=== PATIENT | female | born 1995 | race Two or more races ===

== ENCOUNTER 2018-04-16 20:13 | Emergency (ER) | payer SELFPAY ==
[~2018-04-16] VITALS: Ht 157.5 cm; Wt 57.2 kg
[2018-04-16 20:47] VITALS: BP 123/69
[2018-04-16] MEDS ORDERED: TRAM50TA PO (20:55)
[2018-04-16] MEDS ORDERED: HYDROcodone/APAP 5/325MG 1 TAB TABLET PO ONE (21:00)
--- NOTE | 2018-04-16 22:58 | PHYS DOC ---
Past Medical History Past Medical History: No Pertinent History Past Surgical History: Alcohol Use: None Drug Use: None Adult General Chief Complaint Chief Complaint: Neck Pain HPI HPI Patient is a 22 year old female presents with posterior neck pain described as tender and swollen for the past 2 weeks. Patient was seen at emergency Department same 5 days ago and was prescribed ibuprofen and a muscle relaxant. Patient has also seen a chiropractor in the past for the same. Pain is worse with palpation and neck movement. No fever, rash, sore throat or hoarseness. No other acute symptoms or complaints. Patient has not been evaluated by her primary care doctor for her symptoms.[] Review of Systems Review of Systems ROS as per HPI All other systems were reviewed and found to be within normal limits, except as documented in this note. Current Medications Current Medications Current Medications Medications (Trade) Dose Ordered Sig/Ivan Start Time Stop Time Status Last Admin Dose Admin Acetaminophen/ Hydrocodone Bitart (Lortab 5/325) 1 tab 1X ONCE 04/16/18 21:00 04/16/18 21:03 DC 04/16/18 21:10 1 TAB Allergies Allergies Allergies Coded Allergies Type Severity Reaction Last Updated Verified No Known Drug Allergies 04/16/18 No Physical Exam Physical Exam Constitutional: Well developed, well nourished, no acute distress, non-toxic appearance. [] HENT: Normocephalic, atraumatic, bilateral external ears normal, oropharynx moist, no oral exudates, nose normal. [] Eyes: PERRLA, EOMI, conjunctiva normal, no discharge. [] Neck: Normal range of motion, diffuse mid posterior soft tissue tenderness with increased muscle tension. [] Cardiovascular:Heart rate regular rhythm, no murmur [] Lungs & Thorax: Bilateral breath sounds clear to auscultation [] Neurologic: Alert and oriented X 3, normal motor function, normal sensory function, no focal deficits noted. [] Psychologic: Affect normal, judgement normal, mood normal. [] Current Patient Data Vital Signs Vital Signs Date Time Temp Pulse Resp B/P (MAP) Pulse Ox O2 Delivery O2 Flow Rate FiO2 04/16/18 21:10 16 99 Room Air 04/16/18 20:47 98.8 90 123/69 (87) 98.8 EKG EKG [] Radiology/Procedures Radiology/Procedures [] Course & Med Decision Making Course & Med Decision Making Pertinent Labs and Imaging studies reviewed. (See chart for details) [Pain addressed. Recommend continued anti-inflammatories, and PCP follow-up. Return precautions reviewed.] Dinh Disclaimer Dinh Disclaimer This electronic medical record was generated, in whole or in part, using a voice recognition dictation system. Departure Departure Impression: Primary Impression: Cervical pain (neck) Disposition: HOME, SELF-CARE Condition: GOOD Referrals: NO PCP (PCP) Patient Instructions: Cervical Sprain, [id number] Additional Instructions: Please continue ibuprofen, muscle relaxant take tramadol as directed. Follow-up with your primary care physician for reevaluation and consider of pain management referral or trigger point injections. Scripts Tramadol Hcl (TRAMADOL HCL) 50 Mg Tablet 50 MG PO Q6H PRN for PAIN for 3 Days, #15 TAB 0 Refills Prov: RUTHY MCKINNEY DO 04/16/18 RUTHY MCKINNEY DO Apr 16, 2018 22:58
== END 2018-04-16 21:16 | disposition home or self-care (01) ==
LOC: ER 20:13
DX: M54.2 Cervicalgia (principal); R22.1 Localized swelling, mass and lump, neck
CPT/HCPCS: 99283

== ENCOUNTER 2019-10-15 13:03 | Emergency (ER) | payer SELFPAY ==
[~2019-10-15] VITALS: Ht 157.5 cm; Wt 69.0 kg
[~2019-10-15 13:03] MED LIST: TRAM50TA PO
[2019-10-15] MEDS ORDERED: AZITHROMYCIN 250 MG TABLET. PO ONE (13:30)
[2019-10-15] MEDS ORDERED: HYDROcodone/APAP 5/325MG 1 TAB TABLET PO ONE (13:30)
[2019-10-15] MEDS ORDERED: cefTRIAXone IM 250 MG VIAL IM ONE (13:30)
[2019-10-15] MEDS ORDERED: ONDANSETRON ODT 4 MG TAB.RAPDIS. PO ONE (13:30)
--- NOTE | 2019-10-15 13:37 | PHYS DOC ---
Past Medical History Past Medical History: No Pertinent History Past Surgical History: Smoking Status: Current Every Day Smoker Alcohol Use: None Drug Use: None General Adult EDM: Chief Complaint: WOUND CHECK HPI: HPI: Patient is a 23 year old female who presents with this morning began having vaginal discharge that is yellow and has some pink color to it that has a foul odor. Patient states that about 3 days ago she also noticed that in the fold of her abdomen area around where her incision was about 8 months ago at she has a nickel sized area of what appears to be yeast. She states that it is a burning sensation. Patient also has pelvic pain. Low mid abdomen pelvic area. Patient rates her pain 8 out of 10. She states she took Tylenol this morning at 6 AM. She states she does want to be treated for sexually transmitted diseases today. She is educated that she will be called in 48 hours only if something comes back positive. Review of Systems: Review of Systems: GI: Mid lower abdominal pain, denies nausea, vomiting, bloody stools or diarrhea. [] : Vaginal discharge. Denies dysuria. [] Heart Score: Risk Factors: Risk Factors: DM, Current or recent (<one month) smoker, HTN, HLP, family history of CAD, obesity. Risk Scores: Score 0 - 3: 2.5% MACE over next 6 weeks - Discharge Home Score 4 - 6: 20.3% MACE over next 6 weeks - Admit for Clinical Observation Score 7 - 10: 72.7% MACE over next 6 weeks - Early Invasive Strategies Allergies: Allergies: Allergies Coded Allergies Type Severity Reaction Last Updated Verified No Known Drug Allergies 04/16/18 No Physical Exam: PE: Constitutional: Well developed, well nourished, no acute distress, non-toxic appearance. [] HENT: Normocephalic, atraumatic, bilateral external ears normal, oropharynx moist, no oral exudates, nose normal. [] Eyes: PERRLA, EOMI, conjunctiva normal, no discharge. [] Neck: Normal range of motion, no tenderness, supple, no stridor. [] Cardiovascular:Heart rate regular rhythm, no murmur [] Lungs & Thorax: Bilateral breath sounds clear to auscultation [] Abdomen: Bowel sounds normal, soft, mid lower tenderness, no masses, no pulsatile masses. [] Skin: Warm, dry, no erythema, no rash. nickel sized area of yeast to abdomen.[] Back: No tenderness, no CVA tenderness. [] Extremities: No tenderness, no cyanosis, no clubbing, ROM intact, no edema. [] Neurologic: Alert and oriented X 3, normal motor function, normal sensory function, no focal deficits noted. [] Psychologic: Affect normal, judgement normal, mood normal. [] EKG: EKG: [] Radiology/Procedures: Radiology/Procedures: [] Impression: [facility] [address] [place] [address] IMAGING REPORT Signed PATIENT: ACE HSU MACCOUNT: [id number] : 1995 LOCATION: ER AGE: 23 SEX: F EXAM STATUS: REG ER ORD. PHYSICIAN: CATHIE KAHN APRN REASON: VAGINAL DISCHARGE, PELVIC PAIN PROCEDURE: PELVIS COMPLETE EXAM: PELVIS COMPLETE 10/15/2019 1:27 PM CLINICAL INDICATION:Vaginal discharge, pelvic pain. 8 months , scar is sore. COMPARISON:None TECHNIQUE:Grayscale, color, and Doppler ultrasound of the pelvis. FINDINGS:The uterus is anteverted and measures 6.6 x 3.8 x 2.6 cm. Endometrial stripe measures 4 mm in thickness. No evidence of retained products of conception. Myometrium is unremarkable. The right ovary measures 2.8 x 2.2 x 2.6 cm. Normal blood flow to the right ovary. Left ovary is not visualized. No adnexal mass or free fluid. IMPRESSION: Nonvisualized left ovary. Otherwise, unremarkable pelvic ultrasound. Electronically signed by: Sharmin Jonas MD (10/15/2019 2:11 PM) [id number] DICTATED and SIGNED BY: SHARMIN JONAS MD DATE: 10/15/19 1411 Course & Med Decision Making: Course & Med Decision Making Pertinent Labs and Imaging studies reviewed. (See chart for details) Alert and oriented. Ambulatory with steady gait. Speaks in full clear sentences. Abdomen soft but slight tenderness to low mid pelvic area. Patient has a small nickel sized round reddened area with no opening or drainage or pus will that appears to be yeast. She denies dysuria, fever, nausea, diarrhea, dizziness, headache, chest pain, shortness of air, vomiting, vision changes, numbness or tingling. Patient is given Rocephin and azithromycin in the ED. UTI. Bacterial Vaginosis. Blood work is within normal limits. She continues to be afebrile. Patient is stable. I have referred her to a clay carman if she would like to go. She states she did not want to go back to gynecology. Pelvic Exam: Knife Edger present Abdomen: Slight mid lower External Genitalia: Normal Skin Speculum: Normal vaginal mucosa, green-yellow foul-smelling cervical discharge Bimanual: No adnexal masses or tenderness, No CMT [] Dragon Disclaimer: Dragon Disclaimer: This electronic medical record was generated, in whole or in part, using a voice recognition dictation system. Departure Departure Impression: Primary Impression: Yeast dermatitis Additional Impressions: Bacterial vaginosis UTI (urinary tract infection) Qualified Codes: N39.0 - Urinary tract infection, site not specified; R31.9 - Hematuria, unspecified Disposition: 01 HOME, SELF-CARE Condition: STABLE Referrals: NO PCP (PCP) ANA ROD Jr, MD Patient Instructions: Bacterial Vaginosis, [id number], Sexually Transmitted Disease, Urinary Tract Infection, Yeast Infection of the Skin, [id number] Additional Instructions: Follow up with a clay carman if needed. Take medication with food and as prescribed. Drink plenty of water. Scripts Nystatin/Triamcin (NYSTATIN-TRIAMCINOLONE CREAM) 15 Gm Cream..g. 1 BRENDA TP BID, #15 GM 1 Refill Prov: CATHIE KAHN APRN 10/15/19 Cephalexin (KEFLEX) 500 Mg Capsule 1 CAP PO BID for 7 Days, #14 CAP 0 Refills Prov: CATHIE KAHN APRN 10/15/19 Metronidazole (FLAGYL) 500 Mg Tablet 1 TAB PO BID, #14 TAB Prov: CATHIE KAHN APRN 10/15/19 Justicifation of Admission Dx: Justifications for Admission: Justification of Admission Dx: N/A CATHIE KAHN APRN Oct 15, 2019 13:36
[2019-10-15 13:44] LABS: BILIRUBIN,URINE SMALL (NEG); CLARITY,URINE TURBID; NITRITE,URINE NEGATIVE (NEG); PROTEIN,URINE 100 mg/dL (NEG-TRACE)
[2019-10-15 13:54] LABS: COLOR,URINE DK YELLOW
[2019-10-15 13:56] LABS: BACTERIA,URINE MANY /HPF (0-FEW); SQUAMOUS EPITHELIAL CELL,UR MANY /LPF
--- NOTE | 2019-10-15 14:14 | RAD ---
EXAM: PELVIS COMPLETE 10/15/2019 1:27 PM CLINICAL INDICATION:Vaginal discharge, pelvic pain. 8 months , scar is sore. COMPARISON:None TECHNIQUE:Grayscale, color, and Doppler ultrasound of the pelvis. FINDINGS:The uterus is anteverted and measures 6.6 x 3.8 x 2.6 cm. Endometrial stripe measures 4 mm in thickness. No evidence of retained products of conception. Myometrium is unremarkable. The right ovary measures 2.8 x 2.2 x 2.6 cm. Normal blood flow to the right ovary. Left ovary is not visualized. No adnexal mass or free fluid. IMPRESSION: Nonvisualized left ovary. Otherwise, unremarkable pelvic ultrasound. Electronically signed by: Sharmin Jonas MD (10/15/2019 2:11 PM) [id number]
[2019-10-15 14:18] LABS: BASO % 0 % (0-3); EOS # 0.1 x10^3/uL (0.0-0.7); EOS % 1 % (0-3); HEMATOCRIT 40.8 % (36.0-47.0); HEMOGLOBIN 14.2 g/dL (12.0-15.5); LYMPH % 25 % (24-48); MEAN CORPUSCULAR HEMOGLOBIN 32 pg (25-35); MEAN CORPUSCULAR HGB CONC 35 g/dL (31-37); MEAN CORPUSCULAR VOLUME 93 fL (79-100); MONO # 0.9 x10^3/uL (0.0-1.1); MONO % 8 % (0-9); NEUT # 7.7 x10^3/uL (1.8-7.7); NEUT % 66 % (31-73); PLATELET COUNT 316 x10^3/uL (140-400); RED CELL DISTRIBUTION WIDTH 13.5 % (11.5-14.5); WHITE BLOOD COUNT 11.7 x10^3/uL (4.0-11.0)
[2019-10-15] MEDS ORDERED: METR500T PO (14:25)
[2019-10-15] MEDS ORDERED: CEPH-264 PO (14:25)
[2019-10-15] MEDS ORDERED: NYST15CR2 TP (14:25)
[2019-10-15 14:29] LABS: CALCIUM 8.6 mg/dL (8.5-10.1); CREATININE 0.7 mg/dL (0.6-1.0); POTASSIUM 3.5 mmol/L (3.5-5.1)
[2019-10-15 14:30] VITALS: BP 104/63
[2019-10-15 14:35] LABS: ALBUMIN 3.8 g/dL (3.4-5.0); ALBUMIN/GLOBULIN RATIO 1.1 (1.0-1.7); TOTAL BILIRUBIN 0.5 mg/dL (0.2-1.0); TOTAL PROTEIN 7.4 g/dL (6.4-8.2)
[2019-10-16 18:09] LABS: GC PROBE Negative (Negative)
== END 2019-10-15 14:56 | disposition home or self-care (01) ==
LOC: ER 13:03
DX: N76.0 Acute vaginitis (principal); L30.8 Other specified dermatitis; N39.0 Urinary tract infection, site not specified; B96.89 Other specified bacterial agents as the cause of diseases classified elsewhere; R31.9 Hematuria, unspecified; R10.2 Pelvic and perineal pain; F17.200 Nicotine dependence, unspecified, uncomplicated; Z98.890 Other specified postprocedural states
CPT/HCPCS: 36415; 76856; 80053; 81001; 81025; 83690; 85025; 87086; 87491; 87591; 96372; 99284; J0696; Q0111

== ENCOUNTER 2020-06-05 00:56 | Emergency (ER) | payer SELFPAY ==
[~2020-06-05] VITALS: Ht 157.5 cm; Wt 73.6 kg
[~2020-06-05 00:56] MED LIST changes: +CEPH-264 PO; +METR500T PO; +NYST15CR2 TP
[2020-06-05] MEDS ORDERED: FAMOTIDINE 20 MG/2 ML VIAL IVP ONE (01:45)
[2020-06-05] MEDS ORDERED: METOCLOPRAMIDE HCL 10 MG/2 ML VIAL. IVP ONE (01:45)
[2020-06-05 01:51] LABS: BARBITURATES NEG (NEG); BENZODIAZEPINES NEG (NEG); CANNABINOIDS POS (NEG); COCAINE NEG (NEG); METHADONE NEG (NEG); OPIATES NEG (NEG); PHENCYCLIDINE NEG (NEG)
[2020-06-05 01:53] LABS: AMPHETAMINE/METHAMPHETAMINE NEG (NEG)
--- NOTE | 2020-06-05 01:54 | PHYS DOC ---
Past Medical History Past Medical History: No Pertinent History Past Surgical History: Smoking Status: Current Every Day Smoker Alcohol Use: None Drug Use: None General Adult EDM: Chief Complaint: NAUSEA/VOMITING/DIARRHA HPI: HPI: 24 yo F with no significant past medical history (denies tobacco use), presents the ED with complaints of nausea, nonbloody nonbilious vomiting with associated diffuse abdominal cramps that started 4 days ago when she started her menses. Prior to this her last menstrual period was May 03 and reports she has very irregular menses. Took a home test that was negative. Does not take any routine medications. Denies any foreign travel or sick contacts. No history of Covid. No associated diarrhea, hematochezia, hematemesis, melena, dysuria, hematuria or abnormal vaginal discharge itching or odor. Denies any marijuana or alcohol use. present at bedside and states he smokes t obacco, but outside of the house. PSH 2 C-sections (no d&c). Reports she is a 1 year old and using protection, told chargeback specialist she has no active vaginal bleeding. Review of Systems: Review of Systems: Constitutional: Denies fever or chills. [] Eyes: Denies change in visual acuity. [] HENT: Denies nasal congestion or sore throat. [] Respiratory: Denies cough or shortness of breath. [] Cardiovascular: Denies chest pain or edema. [] GI: Denies bloody stools or diarrhea. [] : Denies dysuria, hematuria or abnormal vaginal discharge or vaginal bleeding Musculoskeletal: Denies back pain or joint pain. [] Integument: Denies rash or diaphoresis Neurologic: Denies headache, focal weakness or sensory changes. [] Endocrine: Denies polyuria or polydipsia. [] Lymphatic: Denies swollen glands. [] Psychiatric: Denies depression or anxiety. [] Heart Score: Risk Factors: Risk Factors: DM, Current or recent (<one month) smoker, HTN, HLP, family history of CAD, obesity. Risk Scores: Score 0 - 3: 2.5% MACE over next 6 weeks - Discharge Home Score 4 - 6: 20.3% MACE over next 6 weeks - Admit for Clinical Observation Score 7 - 10: 72.7% MACE over next 6 weeks - Early Invasive Strategies Current Medications: Current Medications Medications (Trade) Dose Ordered Sig/Ivan Start Time Stop Time Status Last Admin Dose Admin Famotidine (Pepcid Vial) 20 mg 1X ONCE 06/05/20 01:45 06/05/20 01:46 DC Metoclopramide HCl (Reglan Vial) 10 mg 1X ONCE 06/05/20 01:45 06/05/20 01:46 DC Allergies: Allergies: Allergies Coded Allergies Type Severity Reaction Last Updated Verified No Known Drug Allergies 04/16/18 No Physical Exam: PE: Constitutional: non-toxic but uncomfortable appearing/actively vomiting HENT: Normocephalic, atraumatic, Eyes: EOMI, conjunctiva normal, no discharge. Neck: Normal range of motion, supple, Cardiovascular: S1/2 present, regular rhythm Lungs & Thorax: Speaking in full sentences, bilateral equal chest rise, no tachypnea or increased work of breathing Abdomen: soft, no tenderness, actively vomiting in ED, clear emesis with no blood Skin: Warm, dry, no erythema, no rash. [] Back: No tenderness, no CVA tenderness. [] Extremities: No tenderness, no cyanosis, no edema Neurologic: Alert and oriented X 3, normal motor function, normal sensory function, no focal deficits noted. [] Psychologic: Affect normal, judgement normal, mood normal. [] Pelvic: Chaperoned by RN, external genitalia normal, very mild watery vaginal bleeding (looks like 2-3 ccs red-tinged water in vaginal canal), normal nonmalodorous discharge, cervical os closed with no blood expressed through os with valsalva, no cervical erythema, no CMT or adnexal tenderness, tolerated exam well EKG: EKG: [] Radiology/Procedures: Radiology/Procedures: IMAGING REPORT Signed PATIENT: ACE HSU MACCOUNT: [id number] : 1995 LOCATION: ER AGE: 24 SEX: F EXAM STATUS: REG ER ORD. PHYSICIAN: HENNY FRIAS DO REASON: abd pain, vomiting in preg PROCEDURE: OB < 14 WKS US PRE HYSTEROSALPINGOGRAM: 06/05/2020 3:30 AM INDICATION: 24 years old Female. Abdominal pain, vomiting. Spotting COMPARISON: None. TECHNIQUE: Transabdominal and transvaginal sonographic evaluation of the pelvis was performed. Grayscale, color Doppler and spectral waveform analysis were utilized. FINDINGS: UTERUS: Size: 9.7 x 8.5 x 6.8 cm. Masses: None. Endometrium: There is a circumscribed gestational sac identified with single pole with crown-rump length measuring 1.8 cm compatible with a gestational age of 8 weeks 2 days. heart tones are visualized measuring 165 bpm. Yolk sac is visualized. RIGHT OVARY: 3.0 x 2.9 x 2.2 cm. Ovary is normal in appearance. LEFT OVARY: Not visualized. Arterial and venous waveform are identified within the left ovary at the time of imaging. FREE FLUID: None. URINARY BLADDER: Unremarkable. IMPRESSION: Single intrauterine gestation is identified with heart tones measure 165 bpm and crown-rump length compatible gestational age of 8 weeks 2 days. If there is persistent clinical concern, short-term follow-up beta hCG and pelvic ultrasound could be of benefit. Left ovary is not visualized. Right ovary is normal in appearance. Electronically signed by: Julianna Snowden MD (06/05/2020 4:19 AM) [facility] [place]ATED and SIGNED BY: JULIANNA SNOWDEN MD DATE: 06/05/20 [id number] Course & Med Decision Making: Course & Med Decision Making Pertinent Labs and Imaging studies reviewed. (See chart for details) Concern for hyperemesis gravidarum in the setting of marijuana use, hypokalemia of 2.7, UTI and threatened intrauterine first trimester , U/A obtained via straight cath. On reevaluation patient with no further episodes of vomiting, abdominal pain has subsided. US performed was transabdominal. Pt tolerating ice chips/potassium in ed. Will DC home with Diclegis, vitamins, zofran odt and macrobid. On reeval is calm, no active vomiting, appears sleepy and very comfortable. Will discharge home with strict ED return precautions were given for worsening/persistent vaginal bleeding, abdominal or pelvic pain, flank pain, nausea, vomiting or dehydration. Discouraged thc use in and pt states "it was only a brownie." Encouraged urgent outpatient follow-up with PMD and BOX STAMPER-to repeat hcg in 48 hours. Life-threatening processes were considered but are low suspicion at this time, given history, physical exam and ED workup. Pt was educated on all prescription medications and adverse effects. All patient's questions were answered and pt was stable at time of discharge. Life/limb-threatening differential includes but is not limited to, ectopic , septic , sepsis/infection (endometritis, sti/pid, cystitis, pyelonephritis, Jacob's gangrene or necrotizing fasciitis, abscess), ovarian torsion, ruptured hemorrhagic ovarian cyst, endometriosis, ureterolithiasis, thrombophlebitis, hemorrhage/DIC, organ prolapse, abdominal aortic aneurysm, mesenteric ischemia, neoplasm, bowel obstruction or surgical abdomen. I spoken with the patient and her caregivers. I explained the patient's condition, diagnoses and treatment plan based on the information available to me at this time. I have answered the patient and her caregiver's questions and addressed any concerns. The patient and her caregivers have a good understanding of patient's diagnosis, condition and treatment plan as can be expected at this point. Vital signs have been stable. Patient's condition is stable and appropriate for discharge from the emergency department. Patient will pursue further outpatient evaluation with primary care physician or other designated or consulting physician as outlined in the discharge instructions. The patient and/or caregivers are agreeable to this plan of care and follow-up instructions have been explained in detail. The patient and/or caregivers have received these instructions in written form and have expressed an understanding of the discharge instructions. The patient and/or caregivers are aware that any significant change of condition or worsening of symptoms should prompt immediate return to this or the closest emergency department or call to 911. Dinh Disclaimer: Dinh Disclaimer: This electronic medical record was generated, in whole or in part, using a voice recognition dictation system. Departure Departure Impression: Primary Impression: Threatened affecting intrauterine Additional Impressions: Hyperemesis gravidarum Hypokalemia Marijuana use UTI (urinary tract infection) Disposition: 01 DC HOME SELF CARE/HOMELESS Condition: STABLE Referrals: NO PCP (PCP) FOLLOW UP WITH FAMILY MEDICINE: FOR REPEAT POTASSIUM IN 3-5 DAYS Family Medicine Address: [address] [place] [id number] Patient Instructions: Hyperemesis Gravidarum, Hypokalemia, Marijuana Abuse- Brief, - Urinary Tract Infection, Threatened Miscarriage Additional Instructions: FOLLOW UP WITH BOX STAMPER: [facility] Address: [address] [place] [address] EMERGENCY DEPARTMENT GENERAL DISCHARGE INSTRUCTIONS Thank you for coming to [facility] Emergency Department (ED) today and trusting us with you care. We trust that you had a positive experience in our Emergency Department. If you wish to speak to the department management, you may call the Director at [phone]. YOUR FOLLOW UP INSTRUCTIONS ARE FOLLOWS: 1. Do you have a private Doctor? If you do not have a private doctor, please ask for a resource list of physicians or clinics that may be able to assist you with follow up care. 2. The Emergency Physicain has interpreted your x-rays. The X-Ray specialist will also review them. If there is a change in the findings, you will be notified in 48 hours when at all possible. 3. A lab test or culture has been done, your results will be reviewed and you will be notified if you need a change in treatment. ADDITIONAL INSTRUCTIONS AND INFORMATION: 1. Your care today has been supervised by a physician who is specially trained in emergency care. Many problems require more than one evaluation for a complete diagnosis and treatment. We recommend that you schedule your follow up appointment as recommended to ensure complete treatment of you illness or injury. If you are unable to obtain follow up care and continue to have a problem, or if your condition worsens, we recommend that you return to the ED. 2. We are not able to safely determine your condition over the phone nor are we able to give sound medical advice over the phone. For these safety reasons, if you call for medical advice we will ask you to come to the ED for further evaluation. 3. If you have any questions regarding these discharge instructions please call the ED at [phone]. SAFETY INFORMATION: In the interest of safety, wellness, and injury prevention; we encourage you to wear your sealbelt, if you smoke; quite smoking, and we encourage family to use a protective helmet for bicycling and other sporting events that present an increased risk for head injury. IF YOUR SYMPTOMS WORSEN OR NEW SYMPTOMS DEVELOP, OR YOU HAVE CONCERNS ABOUT YOUR CONDITION; OR IF YOUR CONDITION WORSENS WHILE YOU ARE WAITING FOR YOUR FOLLOW UP APPOINTMENT; EITHER CONTACT YOUR PRIMARY CARE DOCTOR, THE PHYSICIAN WHOSE NAME AND NUMBER YOU WERE GIVEN, OR RETURN TO THE ED IMMEDIATELY. Scripts Ondansetron (ONDANSETRON ODT) 4 Mg Tab.rapdis 1 TAB PO PRN Q6-8HRS, #20 TAB Prov: HENNY FRIAS DO 06/05/20 Nitrofurantoin Monohyd/M-Cryst (MACROBID 100 MG CAPSULE) 100 Mg Capsule 1 CAP PO BID for 10 Days, #20 CAP 0 Refills Prov: HENNY FRIAS DO 06/05/20 Pnv Cmb#95/Ferrous Fumarate/Fa ( TABLET) 1 Each Tablet 1 TAB PO DAILY for 30 Days, #30 TAB 0 Refills Prov: HENNY FRIAS DO 06/05/20 Doxylamine Succinate/Vit B6 (Doxylamine-Pyridoxine 10-10 mg) 1 Each Tablet.dr 1 EACH PO Q6HRS for nausea and vomiting, #20 TAB.SR Prov: HENNY FRIAS DO 06/05/20 HENNY FRIAS DO Jun 05, 2020 01:54
[2020-06-05] MEDS ORDERED: IV NORMAL SALINE 1000ML BAG 1,000 ML IV ONE (02:00)
[2020-06-05 02:04] LABS: BASO % 0 % (0-3); EOS % 0 % (0-3); HEMATOCRIT 40.2 % (36.0-47.0); HEMOGLOBIN 14.2 g/dL (12.0-15.5); LYMPH # 1.7 x10^3/uL (1.0-4.8); LYMPH % 15 % (24-48); MEAN CORPUSCULAR HEMOGLOBIN 32 pg (25-35); MEAN CORPUSCULAR HGB CONC 35 g/dL (31-37); MEAN CORPUSCULAR VOLUME 91 fL (79-100); MONO # 0.6 x10^3/uL (0.0-1.1); MONO % 5 % (0-9); NEUT # 9.1 x10^3/uL (1.8-7.7); NEUT % 79 % (31-73); PLATELET COUNT 316 x10^3/uL (140-400); WHITE BLOOD COUNT 11.4 x10^3/uL (4.0-11.0)
[2020-06-05 02:18] LABS: ALBUMIN 4.1 g/dL (3.4-5.0); ALBUMIN/GLOBULIN RATIO 1.1 (1.0-1.7); CALCIUM 9.7 mg/dL (8.5-10.1); CREATININE 0.8 mg/dL (0.6-1.0); GFR 86.7; TOTAL BILIRUBIN 0.5 mg/dL (0.2-1.0)
[2020-06-05 02:19] LABS: POTASSIUM 2.7 mmol/L (3.5-5.1)
[2020-06-05 02:29] LABS: PREG TEST PT QUAL POSITIVE (NEG)
[2020-06-05 02:40] LABS: BILIRUBIN,URINE MODERATE (NEG); CLARITY,URINE TURBID; NITRITE,URINE NEGATIVE (NEG); PROTEIN,URINE 100 mg/dL (NEG-TRACE)
[2020-06-05] MEDS ORDERED: IV DEXTROSE 5% - 0.9 % NACL 1,000 ML IV ONE (02:45)
[2020-06-05 02:49] LABS: COLOR,URINE AMBER
[2020-06-05 02:51] LABS: BACTERIA,URINE MODERATE /HPF (0-FEW)
[2020-06-05] MEDS ORDERED: PYRIDOXINE 100 MG/ML VIAL. IV ONE (03:00)
[2020-06-05] MEDS ORDERED: cefTRIAXone IV Push 1 GM VIAL. IVP ONE (03:30)
--- NOTE | 2020-06-05 04:21 | RAD ---
US PRE HYSTEROSALPINGOGRAM: 06/05/2020 3:30 AM INDICATION: 24 years old Female. Abdominal pain, vomiting. Spotting COMPARISON: None. TECHNIQUE: Transabdominal and transvaginal sonographic evaluation of the pelvis was performed. Ronaldo jose e, color Doppler and spectral waveform analysis were utilized. FINDINGS: UTERUS: Size: 9.7 x 8.5 x 6.8 cm. Masses: None. Endometrium: There is a circumscribed gestational sac identified with single pole with crown-ru mp length measuring 1.8 cm compatible with a gestational age of 8 weeks 2 days. heart tones are visualized measuring 165 bpm. Yolk sac is visualized. RIGHT OVARY: 3.0 x 2.9 x 2.2 cm. Ovary is normal in appearance. LEFT OVARY: Not visualized. Arterial and venous waveform are identified within the left ovary at the time of imaging. FREE FLUID: None. URINARY BLADDER: Unremarkable. IMPRESSION: Single intrauterine gestation is identified with heart tones measure 165 bpm and crown-rump chanell gth compatible gestational age of 8 weeks 2 days. If there is persistent clinical concern, short-term follow-up beta hCG and pelvic ultrasound could be of benefit. Left ovary is not visualized. Right ovary is normal in appearance. Electronically signed by: Yesenia Wilkins MD (06/05/2020 4:19 AM) [id number]
[2020-06-05] MEDS ORDERED: DOXY1TAB8 PO (04:29)
[2020-06-05] MEDS ORDERED: PNV1TABL25 PO (04:29)
[2020-06-05] MEDS ORDERED: POTASSIUM BICARB 20 MEQ EFFERVESCENT TABLET. PO ONE (04:30)
[2020-06-05] MEDS ORDERED: NITR100C62 PO (04:32)
[2020-06-05] MEDS ORDERED: ONDANSETRON PF 4 MG/2 ML VIAL. IVP ONE (04:45)
[2020-06-05 05:07] VITALS: BP 108/60
[2020-06-05] MEDS ORDERED: ONDA4TAB12 PO (05:21)
== END 2020-06-05 05:26 | disposition home or self-care (01) ==
LOC: ER 00:56
DX: O20.0 Threatened abortion (principal); O23.41 Unspecified infection of urinary tract in pregnancy, first trimester; O21.9 Vomiting of pregnancy, unspecified; E87.6 Hypokalemia; F12.90 Cannabis use, unspecified, uncomplicated; F17.200 Nicotine dependence, unspecified, uncomplicated; Z98.890 Other specified postprocedural states; Z3A.08 8 weeks gestation of pregnancy
CPT/HCPCS: 36415; 76801; 80053; 80307; 81001; 83690; 84702; 84703; 85025; 96361; 96365; 96375; 99285; J0696; J2405; J2765; J3415; J3490; J7030; J7042

== ENCOUNTER 2020-08-06 14:00 | Emergency (ER) | payer SELFPAY ==
[~2020-08-06] VITALS: Ht 157.5 cm; Wt 66.8 kg
[~2020-08-06 14:00] MED LIST changes: +DOXY1TAB8 PO; +NITR100C62 PO; +ONDA4TAB12 PO; +PNV1TABL25 PO
[2020-08-06 14:21] VITALS: BP 120/71
[2020-08-06] MEDS ORDERED: LIDOCAINE 2% Multi-Dose 20 ML VIAL. IJ ONE (14:30)
--- NOTE | 2020-08-06 14:48 | ED.ADGEN ---
Past Medical History Past Medical History: No Pertinent History Past Surgical History: Smoking Status: Former Smoker Alcohol Use: None Drug Use: None General Adult EDM: Chief Complaint: LACERATION/AVULSION HPI: HPI: Patient is a 24 year old female coming in for a laceration to the distal tip of her left pinky finger. Patient was slicing onions when she cut it. She is right-handed. No other injuries, otherwise been well. Last tetanus vaccine about 1 year ago. Review of Systems: Review of Systems: All other systems within normal limits except for as noted in the HPI Current Medications: Current Medications Medications (Trade) Dose Ordered Sig/Ivan Start Time Stop Time Status Last Admin Dose Admin Lidocaine HCl (Lidocaine 2% 20ml Vial) 20 ml 1X ONCE 08/06/20 14:30 08/06/20 14:31 DC 08/06/20 14:30 20 ML Allergies: Allergies: Allergies Coded Allergies Type Severity Reaction Last Updated Verified No Known Drug Allergies 04/16/18 No Physical Exam: PE: Constitutional: Well developed, well nourished, no acute distress, non-toxic appearance. [] HENT: Normocephalic, atraumatic, bilateral external ears normal, nose normal. [] Eyes: PERRLA, conjunctiva normal, no discharge. [] Neck: No rigidity, supple, no stridor. [] Cardiovascular: Regular rate and rhythm, brisk cap refill [] Lungs & Thorax: Non labored symmetric respirations, no tachypnea or respiratory distress [] Abdomen: Soft, nondistended. Skin: Warm, dry, no erythema, no rash. 1 cm laceration to fat pad of left pinky finger [] Back: Unremarkable Extremities: No deformities, range of motion grossly intact, no lower extremity edema [] Neurologic: Alert and oriented X 3, no focal deficits noted. [] Psychologic: Affect normal, judgement normal, mood normal. [] EKG: EKG: [] Heart Score: C/O Chest Pain: No Risk Factors: Risk Factors: DM, Current or recent (<one month) smoker, HTN, HLP, family history of CAD, obesity. Risk Scores: Score 0 - 3: 2.5% MACE over next 6 weeks - Discharge Home Score 4 - 6: 20.3% MACE over next 6 weeks - Admit for Clinical Observation Score 7 - 10: 72.7% MACE over next 6 weeks - Early Invasive Strategies Radiology/Procedures: Radiology/Procedures: Patient was prepped and draped in normal fashion, wound irrigated and cleansed with normal saline. The 1 cm wound was anesthetized with lidocaine 2%. Depth of wound was examined and no foreign bodies found. Wound was approximated with 4-0 Ethilon suture and a simple dry pattern. 4 sutures placed without complication. Wound was [] dressed a nonadherent bandage [] Course & Med Decision Making: Course & Med Decision Making Pertinent Labs and Imaging studies reviewed. (See chart for details) [] Dragon Disclaimer: Dragon Disclaimer: This electronic medical record was generated, in whole or in part, using a voice recognition dictation system. Departure Departure Impression: Primary Impression: Laceration of left little finger Disposition: 01 DC HOME SELF CARE/HOMELESS Condition: STABLE Referrals: NO PCP (PCP) Patient Instructions: Sutured Wound Care Additional Instructions: Patient to emergency department or another provider to have sutures removed in 7 to 10 days. Keep dry for the next 1 to 2 days. LAURITA PADRON MD Aug 06, 2020 14:48
== END 2020-08-06 15:10 | disposition home or self-care (01) ==
LOC: ER 14:00
DX: S61.217A Laceration without foreign body of left little finger without damage to nail, initial encounter (principal); Z87.891 Personal history of nicotine dependence; Z98.890 Other specified postprocedural states; W26.8XXA Contact with other sharp object(s), not elsewhere classified, initial encounter; Y93.89 Activity, other specified; Y92.89 Other specified places as the place of occurrence of the external cause; Y99.8 Other external cause status
CPT/HCPCS: 12001; 99282